=== PATIENT | male | born 1990 | race Caucasian/White ===

== ENCOUNTER 2018-02-21 12:23 | Emergency (ER) | payer OTHER ==
[2018-02-21] MEDS ORDERED: TETRACAINE HCL 0.5% OPH SOLN 4 ML OU ONE (13:06)
--- NOTE | 2018-02-21 13:46 | ER Document Report ---
ED Eye Complaint - General Mode of Arrival: Ambulatory Information source: Patient TRAVEL OUTSIDE OF THE [place] IN LAST 30 DAYS: No - HPI Onset: Last week Eye location: Bilateral Injury: Yes Occurred at: Work Quality of pain: Achy, Burning, Pressure Severity: Moderate Pain Level: 4 Associated symptoms: Burning, Pain, Photophobia, Redness, Matting, Eyelid swelling - General Chief Complaint: Eye Problem Stated Complaint: EYE ISSUE Time Seen by Provider: 02/21/18 12:59 Notes: 27-year-old male presents to ED for complaint of bilateral eye redness swelling pain and achy. He states the pain is much worse with light or movement. He states he was doing PT with his unit on Saturday and went to some gross water and Saturday he started with achy red eyes the progressed on Saturday and [place] [facility] [place] eryth[place]. He is was told that he had a viral infection and they were given him erythromycin ointment to be sure that he did not develop an bacterial infection. (MARCIA GRUBER) - Related Data Allergies/Adverse Reactions: No Known Allergies Allergy (Unverified 02/21/18 12:26) Past Medical History - General Information source: Patient - Social History Smoking Status: Never Smoker Chew tobacco use (# tins/day): No Frequency of alcohol use: Rare Drug Abuse: None Lives with: Family, Spouse/Significant other Family History: Reviewed & Not Pertinent Patient has suicidal ideation: No Patient has homicidal ideation: No - Past Medical History Cardiac Medical History: Reports: None Pulmonary Medical History: Reports: None EENT Medical History: Reports: None Neurological Medical History: Reports: None Endocrine Medical History: Reports: None Renal/ Medical History: Reports: None Malignancy Medical History: Reports None GI Medical History: Reports: None Musculoskeletal Medical History: Reports None Skin Medical History: Reports None Psychiatric Medical History: Reports: None Traumatic Medical History: Reports: None Infectious Medical History: Reports: None Surgical Hx: Negative Past Surgical History: Reports: None - Immunizations Immunizations up to date: Yes Hx Diphtheria, Pertussis, Tetanus Vaccination: Yes Review of Systems - Review of Systems Notes: REVIEW OF SYSTEMS: CONSTITUTIONAL : Denies fever, chills, or sweats. Denies recent illness. EENT: Denies ear, throat, or mouth pain or symptoms. Denies nasal or sinus congestion or discharge. Denies throat, tongue, or mouth swelling or difficulty swallowing. CARDIOVASCULAR: Denies chest pain. Denies palpitations or racing or irregular heart beat. Denies ankle edema. RESPIRATORY: Denies cough, cold, or chest congestion. Denies shortness of breath, difficulty breathing, or wheezing. GASTROINTESTINAL: Denies abdominal pain or distention. Denies nausea, vomiting , or diarrhea. Denies blood in vomitus, stools, or per rectum. Denies black, tarry stools. Denies constipation. GENITOURINARY: Denies difficulty urinating, painful urination, burning, frequency, blood in urine, or discharge. MUSCULOSKELETAL: Denies back or neck pain or stiffness. Denies joint pain or swelling. SKIN: Denies rash, lesions or sores. HEMATOLOGIC : Denies easy bruising or bleeding. LYMPHATIC: Denies swollen, enlarged glands. NEUROLOGICAL: Denies confusion or altered mental status. Denies passing out or loss of consciousness. Denies dizziness or lightheadedness. Denies headache. Denies weakness or paralysis or loss of use of either side. Denies problems with gait or speech. Denies sensory loss, numbness, or tingling. Denies seizures. PSYCHIATRIC: Denies anxiety or stress. Denies depression, suicidal ideation, or homicidal ideation. ALL OTHER SYSTEMS REVIEWED AND NEGATIVE. Dictation was performed using [employer] voice recognition software PHYSICAL EXAMINATION: GENERAL: Well-appearing, well-nourished and in no acute distress. HEAD: Atraumatic, normocephalic. EYES: Bilateral erythemic conjunctivitis with redness to the eyelids and surrounding the right eye. Complains of pain with light or movement of the eyes. No corneal abrasion, no corneal ulcers, or any injuries noted. Visual acuity 20/40 in the left right and both eyes. No flourescein uptake. No matting to the eyelashes at this time but he states he has had increased drainage and matting to his eyelashes at home. ENT: Nares patent, oropharynx clear without exudates. Moist mucous membranes. NECK: Normal range of motion, supple without lymphadenopathy LUNGS: Breath sounds clear to auscultation bilaterally and equal. No wheezes rales or rhonchi. HEART: Regular rate and rhythm without murmurs ABDOMEN: Soft, nontender, nondistended abdomen. No guarding, no rebound. No masses appreciated. Musculoskeletal: Normal range of motion, no pitting or edema. No cyanosis. NEUROLOGICAL: Cranial nerves grossly intact. Normal speech, normal gait. Normal sensory, motor exams PSYCH: Normal mood, normal affect. SKIN: Warm, Dry, normal turgor, no rashes or lesions noted. (MARCIA GRUBER) - Vital signs Vitals: Temp Pulse Resp BP Pulse Ox 98.2 F 68 14 138/85 H 99 02/21/18 12:30 02/21/18 12:30 02/21/18 12:30 02/21/18 12:30 02/21/18 12:30 Course - Re-evaluation Re-evalutation: 02/21/18 13:48 Consulted ER physician who came and examined the eyes and then [place] stated the recommendation is to send the patient home with artificial tears and [place] before he goes to the field that he cannot go to the field without following up with [facility]. He is to stop the erythromycin. Use [id number] artificial tears and use ketorolac eyedrops for pain. (MARCIA GRUBER) 02/23/18 11:49 I did personally see and examine this patient with a several day history of redness and pain to the right eye with associated discharge and mild crusting. Patient was originally diagnosed with a bacterial eye infection and started on erythromycin from his [facility], this is because no improvement. Denies any contact lens use or recent injury. Examination under slit lamp reveals no fluorescein uptake, no foreign body, significant conjunctival injection without ulceration. No cell and flare in the anterior chamber. [place] [facility] [place]. Agrees that this appears to be epidemic keratoconjunctivitis. Recommend stopping the erythromycin and starting supportive care using artificial tears every hour while he is awake. Counseled on good hand hygiene and to follow-up with the [facility] on Saturday. Discharge to home. (LYNNE GARCIA) - Vital Signs Vital signs: Temp Pulse Resp BP Pulse Ox 98.2 F 60 16 127/69 H 99 02/21/18 14:10 02/21/18 14:10 02/21/18 14:10 02/21/18 14:10 02/21/18 14:10 Discharge - Discharge Clinical Impression: EKC (epidemic keratoconjunctivitis) Condition: Stable Disposition: HOME, SELF-CARE Additional Instructions: You have been diagnosed with Epidemic Keratoconjunctivitis. We need to stop the erythromycin ointment and use [id number] artificial tears. I have given you a pain drop called ketorolac for your pain in the eyes. You can use the ketorolac 1 drop in both eyes 4 times a day for pain. EYEDROP USE: Eyedrops are most easily applied by pulling down on the cheek just below the lower eyelid. The lower lid will pop out to form a pouch into which you can drop the medicine. A small brief sting is not unusual, especially if the eye is reddened and irritated already. Use the drops exactly as recommended. You should see the doctor at once if there is a decrease in vision, swelling of the eye, or an increase in discomfort. It is very important that you [place] before you go out in the field if they feel you need to see an leather coater you need to see the leather coater before going in the field. We have consulted a leather coater today and that is his recommendation. FOLLOW-UP CARE: If you have been referred to a physician for follow-up care, call the physician s office for an appointment as you were instructed or within the next two days. If you experience worsening or a significant change in your symptoms, notify the physician immediately or return to the Emergency Department at any time for re-evaluation. Prescriptions: Ketorolac Tromethamine [Acular] 1 drop OU QID #5 ml Forms: Elevated Blood Pressure, Special Work Note
[2018-02-21 14:11] VITALS: BP 127/69
== END 2018-02-21 14:17 | disposition home or self-care (01) ==
LOC: ER 12:23
DX: B30.0 Keratoconjunctivitis due to adenovirus (principal); H57.13 Ocular pain, bilateral
CPT/HCPCS: 99283; J3490